=== PATIENT | male | born 1965 | race Caucasian/White ===

== ENCOUNTER 2022-02-27 23:34 | Emergency (ER) | payer OTHER, SELFPAY ==
--- NOTE | ~2022-02-27 | CT_ITS ---
EXAMINATION: CT facial bones wo con DATE: 02/28/2022 00:28 INDICATION: Head injury. Syncope. TECHNIQUE: Computed tomography (CT) of the facial bones and maxillofacial region was performed withou t intravenous contrast. Automated exposure control and iterative reconstruction technique were employ ed. The dose-length product was 304.87 mGy-cm. COMPARISON: None. FINDINGS: There is a frontal scalp laceration. The orbits are normal. There is leftward deviation of the nasal septum. No fracture. There is a carious lesion of tooth 18 with periapical lucencies. IMPRESSION: 1. No fracture. 2. Dental disease. Reviewed, dictated and finalized at location A.
--- NOTE | ~2022-02-27 | CT_ITS ---
EXAMINATION: CT brain wo con DATE: 02/28/2022 00:28 INDICATION: Syncope. Head injury. TECHNIQUE: Computed tomography (CT) of the head was performed without intravenous contrast. The mA wa s adjusted according to patient size. Iterative reconstruction technique was employed. The dose-lengt h product was 605.33 mGy-cm. COMPARISON: None FINDINGS: There is no intracranial hemorrhage, acute infarction, or abnormal intracranial mass lesion . The ventricles are normal in size. The orbits are normal. There is mild mucosal thickening in the e thmoid sinuses. Vertebral body heights are normal. The mastoid air cells are normal. There is frontal scalp soft tissue swelling. IMPRESSION: 1. Normal brain. Reviewed, dictated and finalized at location A. IMPRESSION: 1. Normal brain.
[2022-02-27 23:34] VITALS: BP 163/99; PULSE 88; RESP 16; TEMP 36.6; O2SAT 100
--- NOTE | 2022-02-28 | PC.NURSE ---
Changed bloody bandage at 00:00
[2022-02-28] MEDS: LIDO 1%/EPINEPHRINE 1:100,000 10 ML VIAL (01:03)
--- NOTE | 2022-02-28 01:08 | PC.NURSE ---
erp at bedside to suture
--- NOTE | 2022-02-28 01:18 | ED.GENADULT ---
HPI - General Adult General Chief complaint: Wound/Laceration Stated complaint: HEAD LACERATION Time Seen by Provider: 02/27/22 23:36 History of Present Illness HPI narrative: 56-year-old male presented the emergency department for evaluation for a head injury. Patient states he had been on his inversion table and felt some dizziness and lightheadedness. Patient went to upright himself and had a near syncopal episode causing himself to fall forward and strike his head resulting in a laceration to his forehead. Patient denies any neck pain. Patient denies any other pain or injury. Related Data Allergies Allergy/AdvReac Type Severity Reaction Status Date / Time No Known Allergies Allergy Verified 02/27/22 23:38 Exam Narrative: APPEARANCE: Well appearing, no pain, no distress, well-nourished. HEAD: normocephalic, atraumatic. EYES: PERRLA/EOMI, conjunctivae clear. NOSE: Normal no drainage NECK: Supple. No adenopathy, no masses. RESPIRATORY: Airway patent, respirations nonlabored. Clear to auscultation bilaterally, no rales, rhonchi, wheezing. CARDIOVASCULAR: Regular rate and rhythm without murmurs rubs or gallops. ABDOMINAL: Soft, nontender, nondistended, normal bowel sounds MUSCULOSKELETAL: Moves all extremities. Strength/ROM intact, No edema, No calf tenderness. NEURO: Alert. Cranial nerves II through XII intact. Good gait. Good coordination SKIN: Laceration to forehead, small laceration to upper lip and small laceration to her chin. Lacerations to upper lip and chin are superficial and are not needing a repair. PSYCHIATRIC: Normal affect/mood. Course Course Emergency Course: Head CT was negative for acute abnormalities of head or face. Laceration on forehead was repaired as described above. Patient was updated on wound care. All questions and concerns were addressed. Patient was comfortable with the plan for discharge and close follow-up. Patient was advised to not use the inversion table anymore. Vital Signs Vital signs: Vital Signs Temperature 97.9 F 02/27/22 23:34 Pulse Rate 88 02/27/22 23:34 Respiratory Rate 16 02/27/22 23:34 Blood Pressure 163/99 H 02/27/22 23:34 Pulse Oximetry 100 02/27/22 23:34 Temperature 98.3 F 02/28/22 01:41 Pulse Rate 74 02/28/22 01:41 Respiratory Rate 16 02/28/22 01:41 Blood Pressure 136/74 02/28/22 01:41 Pulse Oximetry 98 02/28/22 01:41 Procedures Laceration Laceration 1: Time: 01:18 Site: scalp Size (cm): 3 Description: linear Depth: simple, single layer Local Anesthetic: lidocaine 1% and with epi Amount of anesthesia used (mL): 4 Pre-repair: wound explored ====== Skin Level ====== Skin layer closed with: prolene Size (cm): 6-0 Number of sutures: 5 Technique: simple, interrupted ====== Subcutaneous Layer ====== ====== Muscle Layer ====== ====== Tendon Layer ====== Medical Decision Making Vital Signs Vital Signs: Vital Signs Temperature 97.9 F 02/27/22 23:34 Pulse Rate 88 02/27/22 23:34 Respiratory Rate 16 02/27/22 23:34 Blood Pressure 163/99 H 02/27/22 23:34 Pulse Oximetry 100 02/27/22 23:34 Temperature 98.3 F 02/28/22 01:41 Pulse Rate 74 02/28/22 01:41 Respiratory Rate 16 02/28/22 01:41 Blood Pressure 136/74 02/28/22 01:41 Pulse Oximetry 98 02/28/22 01:41 Imaging Data Radiologist's impression: Overnight read CT head impression: No ICH, mass-effect or edema. No skull fracture. Incidental findings: None. CT facial impression: No facial fracture. No traumatic orbital injury. Sinuses are clear. Incidental findings: None Discharge Plan Discharge Clinical Impression: Laceration, Head injury, Facial injury Patient Disposition: Home, Self-Care Condition: Stable Instructions: Antibiotic Form, Care For Your Stitches (ED), Laceration (ED), Head Injury (ED) Additional Instructi
[2022-02-28 01:41] VITALS: BP 136/74; PULSE 74; RESP 16; TEMP 36.8; O2SAT 98
== END 2022-02-28 01:42 | disposition home or self-care (01) ==
PROVIDERS: Emergency Provider Emergency Medicine; PCP Internal Medicine
DX: S01.01XA Laceration without foreign body of scalp, initial encounter (principal); S09.90XA Unspecified injury of head, initial encounter; S01.511A Laceration without foreign body of lip, initial encounter; S01.81XA Laceration without foreign body of other part of head, initial encounter; W19.XXXA Unspecified fall, initial encounter
CPT/HCPCS: 12002; 70450; 70486; 99284

== ENCOUNTER 2022-04-27 13:50 | Emergency (ER) | payer OTHER, SELFPAY ==
[2022-04-27 13:53] VITALS: BP 147/94; PULSE 105; RESP 18; TEMP 36.8; O2SAT 100
--- NOTE | 2022-04-27 14:23 | ED.EYEPROB ---
HPI - Eye Problem General Chief complaint: Eye Problems Stated complaint: right eye FB Time Seen by Provider: 04/27/22 14:05 History of Present Illness HPI Narrative: Right eye foreign body while grinding 4 days ago. No other injuries. Denies any visual abnormality. Related Data Allergies Allergy/AdvReac Type Severity Reaction Status Date / Time No Known Allergies Allergy Verified 02/27/22 23:38 Review of Systems Review of Systems: All systems reviewed & are unremarkable except as noted in HPI and below Exam Narrative: General appearance: Well-developed, well-nourished Eyes: Conjunctiva injection, 1 mm foreign body at the right side of the right cornea ENT: Oropharynx normal, ears normal, nose normal Neurologic: Alert and oriented ?3, Course Course Emergency Course: Right corneal foreign body Vital Signs Vital signs: Vital Signs Temperature 36.8 C 04/27/22 13:53 Pulse Rate 105 H 04/27/22 13:53 Respiratory Rate 18 04/27/22 13:53 Blood Pressure 147/94 H 04/27/22 13:53 Pulse Oximetry 100 04/27/22 13:53 Oxygen Delivery Room Air 04/27/22 13:53 Temperature 36.8 C 04/27/22 13:53 Pulse Rate 105 H 04/27/22 13:53 Respiratory Rate 18 04/27/22 13:53 Blood Pressure 147/94 H 04/27/22 13:53 Pulse Oximetry 100 04/27/22 13:53 Oxygen Delivery Room Air 04/27/22 13:53 Procedures Foreign Body Removal Foreign Body #1: Foreign Body Removal Date: 04/27/22 Foreign Body Removal Time: 14:41 Time Out Performed: yes (5) Site: right and other (eye) Description of foreign body: other (Metal) Sedation/Analgesia: other (Tetracaine eyedrops) Technique: manual removal Confirmed by:: direct visualization Complications: none FB Removal Eye Foreign Body #1: Foreign Body Removal Date: 04/27/22 Foreign Body Removal Time: 14:44 Time Out performed: Yes (5) Location: eye (R) Topical anesthetic used: tetracaine Foreign body: metal Evidence of corneal penetration: No Technique: needle Procedure performed under: direct visualization with magnification Post-procedure medication: ophthalmic antibiotic Patient tolerated procedure: well Foreign Body Removal Narrative: Complete foreign body removal without residual rust ring. No corneal penetration. Critical Care Time Critical Care Time Critical Care Time: No Discharge Plan Discharge Clinical Impression: Foreign body in eye Patient Disposition: Home, Self-Care Condition: Improved Instructions: Antibiotic Form, Eye Foreign Body (ED) Additional Instructions: Return if symptoms are worsening , call your family physician for appointment, take Tylenol as as needed for aches and pain, continue home medications. If there is no improvement or if you think that you are getting worse to follow-up with [facility]. Prescriptions: New erythromycin 5 mg/gram (0.5 %) ointment 0.5 inch ophthalmic (eye) QID Qty: 1 0RF Follow-up/Referrals: Vero,Bridger Mc MD [Primary Care Provider] - Mina Sykes MD [Physician] - 04/29/22
[2022-04-27] MEDS: ERYTHROMYCIN OPHTH OINTMENT 1 GM TUBE 1 APPLIC EACH EYE (15:02)
== END 2022-04-27 15:07 | disposition home or self-care (01) ==
LOC: ANHED 14:33
PROVIDERS: Emergency Provider Emergency Medicine; PCP Internal Medicine
DX: T15.01XA Foreign body in cornea, right eye, initial encounter (principal)
CPT/HCPCS: 65220; 99283; A9270

== ENCOUNTER 2024-11-22 07:37 | Emergency (ER) | payer OTHER, SELFPAY ==
[2024-11-22 07:53] VITALS: BP 146/96; PULSE 79; RESP 16; TEMP 36.4; O2SAT 99
--- NOTE | 2024-11-22 08:48 | ED.EYEPROB ---
HPI - Eye Problem General Chief complaint: Eye Problems Stated complaint: L eye irritation Time Seen by Provider: 11/22/24 08:17 Source: patient Mode of arrival: ambulatory Limitations: no limitations History of Present Illness HPI Narrative: Patient presents with report of left eye irritation. This started spontaneously while driving on Friday. He rubbed his eye and then call that it was more painful with a burning sensation. It was red. The eye felt fine on Friday and he denies any redness but then started again yesterday. 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 He has some slight pain with extraocular movements. He notes that he had some discharge and drainage that he thought might be pus. He denies any pruritus. The eyelashes were matted with some slight crusting. He left eye is painful and red. He has a foreign body sensation like there is a grittiness though behind his eye. He has had some blurred vision has resolved but denies any diplopia. He denies any allergies any is not been sneezing but this eye has been watery and is associated with photophobia. No trauma. No change with blinking. Tried eye drops. Has been flushing it at home with no relief. Related Data Allergies Allergy/AdvReac Type Severity Reaction Status Date / Time No Known Allergies Allergy Verified 11/22/24 07:59 Exam Narrative: GENERAL: Well-appearing, well-nourished, and in no acute distress. HEAD: Normocephalic, atraumatic. EYES: Non icteric Visual acuity 20/25 Right, 20/70 Left Pupils ; 2mm, grossly symmetric. Extraocular motility and alignment - normal, no entrapment. No nystagmus. Slight pain with movements. Intra-ocular pressure = 13 left eye. External examination : significant conjuntival injection/scleral injection Left eye. Hyperemeic conjunctiva but no identifiable foreign body with eversion of eyelids. R eye normal. Slit-lamp examination with 1mm foreign body 9o'clock position left iris. ENT: Nares clear, no rhinorrhea or epistaxis. Gross auditory acuity intact. NECK: Supple. No meningismus. CHEST: Speaking in full sentences. No respiratory distress. HEART: Regular rate and rhythm. . ABDOMEN: Soft, nondistended. EXTREMITIES: Normal range of motion. No lower extremity edema. SKIN: Warm, dry, no rash. NEURO: No focal deficits. Alert and oriented. Answering questions. Following commands. Normal speech without aphasia or dysarthria. PSYCH: Normal mood and affect. Course Vital Signs Vital signs: Vital Signs Temperature 97.6 F 11/22/24 07:53 Pulse Rate 79 11/22/24 07:53 Respiratory Rate 16 11/22/24 07:53 Blood Pressure 146/96 H 11/22/24 07:53 Pulse Oximetry 99 11/22/24 07:53 Oxygen Delivery Room Air 11/22/24 07:53 Temperature 97.6 F 11/22/24 07:53 Pulse Rate 84 11/22/24 10:26 Respiratory Rate 16 11/22/24 10:26 Blood Pressure 138/90 11/22/24 10:26 Pulse Oximetry 99 11/22/24 10:26 Oxygen Delivery Room Air 11/22/24 07:53 MDM - Eye Problem MDM Narrative Medical decision making narrative: Patient presents with red painful L eye. In the emergency department he is afebrile with vital signs notable for mild hypertension. Patient cannot report pain that is worse with blinking but he does have photophobia and eye foreign body sensation and there is evidence of conjunctival injection with rust ring/possible retained foreign body at the 9o'clock position of the iris on the left. No high velocity injury to suspect need for x-ray or CT to rule out ocular penetration. Will update patient's tetanus out of an abundance of precaution given that it has been more than 10 years. Attempted to remove under magnification but unable to do so. Suspect the object has been present since Friday which is when symptoms began. Called [facility] in [place]. They were able to make an appointment for him later today after I provided his contact information//insurance information. Discharged in stable condition and advised he make that appointment for follow up. Differential Diagnosis Differential diagnosis: Likely corneal abrasion, acute iritis, hyphema, periorbital cellulitis, subconjunctival hemorrhage, corneal ulcer and other (foreign body/caustic injury) Discharge Plan Discharge Clinical Impression: Corneal irritation of left eye, Foreign body of left eye Patient Disposition: Home Condition: Stable Instructions: Antibiotic Form, Eye Foreign Body (ED) Additional Instructions: Your tetanus shot was updated today. It appears you have a foreign body/rust ring at the 9 o'clock position of your left iris. Please follow up with eye doctors listed below at [facility] in [place]-an appointment was made for you for later today at 1:45 p.m. It is very important that you go. Please keep this appointment Patient Language: Citizen Of [place] Prescriptions: New erythromycin 5 mg/gram (0.5 %) ointment 0.5 inch LEFT EYE BID Qty: 3.5 0RF No Action erythromycin 5 mg/gram (0.5 %) ointment 0.5 inch ophthalmic (eye) QID Qty: 1 0RF Follow-up/Referrals: [facility] [Outside] (Today at 1:45pm) Vero,Bridger Mc MD [Primary Care Provider] - Stand Alone Forms: Work/School Release IP Time of Disposition: 10:13
[2024-11-22] MEDS: ERYTHROMYCIN OPHTH OINTMENT 1 GM TUBE 1 APPLIC LEFT EYE (09:40)
[2024-11-22] MEDS: TETANUS,DIPHTHERIA,AC PERTUSSIS ADULT (0.5 ML) BOOSTRIX IM (09:40)
[2024-11-22 10:26] VITALS: BP 138/90; PULSE 84; RESP 16; O2SAT 99
== END 2024-11-22 10:39 | disposition home or self-care (01) ==
PROVIDERS: Emergency Provider Student in an Organized Health Care Education/Training Program; PCP Internal Medicine
DX: T15.02XA Foreign body in cornea, left eye, initial encounter (principal); W44.9XXA Unspecified foreign body entering into or through a natural orifice, initial encounter; Z23 Encounter for immunization
CPT/HCPCS: 90471; 90715; 99283; A9270